=== PATIENT | female | born 1990 | race Caucasian/White ===

== ENCOUNTER 2020-03-08 18:31 | Inpatient (IN) | payer MEDICAID, SELFPAY ==
[2020-03-08] VITALS (24 sets, daily range): BP systolic 0–155; BP diastolic 0–90; PULSE 85–138; RESP 18; TEMP 36.7–37; BMI 27.8
[2020-03-08 18:58] LABS: Basophils # 0.1 10^3/uL (0.0-0.1); Basophils % 0.4 %; Eosinophils % 0.2 %; Hematocrit 34.4 % (37.0-47.0); Hemoglobin 11.4 g/dL (11.5-15.3); Lymphocytes # 1.2 10^3/uL (0.8-4.8); Lymphocytes % 6.7 %; Mean Corpuscular HGB Conc 33.1 g/dL (30.0-36.0); Mean Corpuscular Hemoglobin 31.1 pg (28.0-34.0); Mean Platelet Volume 11.8 fL (7.4-10.4); Monocytes # 1.7 10^3/uL (0.2-0.9); Monocytes % 9.2 %; Neutrophils # 15.01 10^3/uL (1.8-7.7); Neutrophils % 82.7 %; Nucleated Red Blood Cells % 0 %; Platelet Count 291 10^3/cmm (130-400); Red Blood Count 3.66 10^6/uL (4.1-5.3); Red Cell Distribution Width 13.9 % (12.1-15.1); White Blood Count 18.1 10^3/uL (4.0-10.0)
--- NOTE | 2020-03-08 19:33 | PM.DELIVERY ---
Delivery Note: Date of delivery: March 08, 2020 Pre-delivery diagnoses: 29-year-old 4 para 2-0-1-2 female at 39 weeks estimated gestational age who presented to the hospital in active labor. Post-delivery diagnoses: Status post spontaneous vaginal delivery Procedure: Spontaneous vaginal delivery Op report anesthesia: None Delivering Physician: Evan Estrada Estimated blood loss (mL): 100 Pre-Delivery Course: The patient is a 29-year-old female who had an unremarkable who presented to the hospital in active labor. Her blood type was B+. She is GBS negative. Glucose screen was negative. Her was diagnosed with COVID-19 2 days ago. She has been isolating from him since that time. She has had no symptoms. Approximately an hour prior to arriving to the hospital, her water broke. She then began having contractions. She was quickly brought to the hospital. When she arrived, she was 8 cm dilated. She quickly progressed to complete. Delivery: DELIVERY: The patient progressed to complete without difficulty. She delivered a male with a weight of 7 pounds 14 ounces with Apgars of 9, 9. The baby was delivered from the JARETT position. The baby's mouth and nose were suctioned at the site of the perineum. The baby was then completely delivered and placed on the mother's abdomen. The cord was then clamped and cut. There was no nuchal cord. There was no meconium. The placenta and 3 vessel cord were delivered intact shortly thereafter. The perineum and vaginal vault were carefully examined. No lacerations were noted. Both the mother and the baby were in stable condition. Post-Delivery Status: Stable Coding Level of Care Code Acute Health Services Rn for Lora Hopkins
[2020-03-08 19:47] LABS: Slide Review Slide Review Perform
[2020-03-08] MEDS: lanolin oint 7 gm 1 APPLIC TOPICAL (20:51)
[2020-03-08] MEDS: HYDROcodone-acetaminophen 5-325 mg Tablet PO (20:52)
[2020-03-08] MEDS: benzocaine-menthol 78 gm Canister 1 SPRAY TOPICAL (20:52)
[2020-03-09] VITALS (16 sets, daily range): BP systolic 0–137; BP diastolic 0–77; PULSE 72–89; RESP 16–18; TEMP 36.6–36.9; O2SAT 97–99
[2020-03-09 03:48] LABS: SARS Covid-2 Antigen Positive (Negative)
[2020-03-09 08:39] LABS: Hematocrit 32.6 % (37.0-47.0); Hemoglobin 10.8 g/dL (11.5-15.3); Mean Corpuscular HGB Conc 33.1 g/dL (30.0-36.0); Mean Corpuscular Hemoglobin 31.3 pg (28.0-34.0); Mean Corpuscular Volume 94.5 fL (81-99); Mean Platelet Volume 11.7 fL (7.4-10.4); Platelet Count 269 10^3/cmm (130-400); Red Blood Count 3.45 10^6/uL (4.1-5.3); White Blood Count 12.8 10^3/uL (4.0-10.0)
[2020-03-09] MEDS: prenatal vitamin Capsule 1 CAP PO (09:05)
[2020-03-09] MEDS: ibuprofen 800 mg tablet PO ×3 (09:05→20:35)
[2020-03-09] MEDS: docusate sodium 100 mg Capsule PO (09:05)
--- NOTE | 2020-03-09 18:27 | PM.OBGYPN ---
CESSATION SYSTEMS OUTREACH SPECIALIST Subjective Subjective: Interval history: The patient has done very well . She has breast-fed well. Her pain is been well controlled. Her bleeding has been within normal limits. There have been no concerns. She is currently in the OB COVID unit due to her 's COVID positive status. Labor: Station: +2 Amniotic Membrane Status: Ruptured Monitor Mode: External Contraction Pattern: Regular Vitals/I&O/Wt Last Vital Signs Temp 98.1 F 03/09/20 10:15 Pulse 89 03/09/20 10:15 Resp 16 03/09/20 10:15 BP 114/65 03/09/20 10:15 Pulse Ox 99 03/09/20 05:00 03/09/20 03/09/20 03/09/20 06:59 14:59 22:59 Output Total 600 / 600 Balance -600 / -600 Weight last 48 hrs Weight 183 lb Physical Exam Narrative: EXAM NARRATIVE: The patient is alert. She appears comfortable. Her heart has a regular rate and rhythm with no murmurs appreciated. Lungs are clear to auscultation bilaterally. Her fundus is firm and below the umbilicus. Data : 03/09/20 08:15 A&P Assessment and plan (1) 39 weeks gestation of : I anticipate discharge home tomorrow morning if all continues to go well. We will continue to keep her in the COVID unit while in the hospital. Status: Acute (2) Exposure to COVID-19 virus: Status: Acute (3) Spontaneous vaginal delivery: Status: Acute Attestations Medical Necessity Statement*: I anticipate routine care for the patient. Coding Level of Care Code Acute Pattern Gater for Chg Fwd Diagnoses 39 weeks gestation of Z3A.39 Exposure to COVID-19 virus Z20.828 Spontaneous vaginal delivery O80
[2020-03-09] MEDS: HYDROcodone-acetaminophen 5-325 mg Tablet PO (22:04)
[2020-03-09 22:15] LABS: Coronavirus Lab Test PTC Positive
[2020-03-10 04:00] VITALS: BP 128/85; PULSE 77; RESP 18; TEMP 36.5; O2SAT 97
--- NOTE | 2020-03-10 06:37 | P.DS_ITS ---
Discharge Providers DIRECTOR BIOMEDICAL ENGINEERING Date of Admission: 03/08/20 18:31 Date of Discharge: 03/10/20 Attending Provider at Admission: Evan Estrada MD Attending Provider at Discharge: Evan Estrada MD Primary Care Provider: Evan Estrada MD Diagnoses at Discharge Discharge Diagnosis (1) 39 weeks gestation of : Status: Acute (2) Exposure to COVID-19 virus: Status: Acute (3) Spontaneous vaginal delivery: Status: Acute Reason for Visit Reason for Visit: Abdominal pain Hospital Course Hospital Course: The patient presented to the hospital in active labor at 8 cm dilated. She had an unremarkable delivery shortly thereafter. Her course has been complicated only by the fact that she has been exposed to COVID- 19 by her who is positive. As result she is been in the COVID unit during her time in the hospital. She has breast-fed well. Her pain is been well controlled. Her bleeding is been within normal limits. There have been no concerns. Information Peripartum Data: Delivery Method: Vaginal Physical Exam Narrative: EXAM NARRATIVE: The patient is alert. She appears comfortable. Her heart has a regular rate and rhythm with no murmurs appreciated. Lungs are clear to auscultation bilaterally. Her fundus is firm and below the umbilicus. Discharge Data Data Completed and Pending: Labs from last 24 hours 03/09/20 03/09/20 08:15 02:28 WBC 12.8 H RBC 3.45 L Hgb 10.8 L Hct 32.6 L MCV 94.5 MCH 31.3 MCHC 33.1 RDW 14.0 Plt Count 269 MPV 11.7 H Nasal/Oral COVID-1 9 PCR Positive Vitals: Last Vital Signs Temp 97.7 F 03/10/20 04:00 Pulse 77 03/10/20 04:00 Resp 18 03/10/20 04:00 BP 128/85 03/10/20 04:00 Pulse Ox 97 03/10/20 04:00 Discharge Plan Discharge Patient Disposition: Home Condition: Stable Prescriptions: New ibuprofen 800 mg Tablet 800 mg PO TID Qty: 30 RF: 0 Continued 28 mg iron- 800 mcg Tablet 1 tab PO DAILY RF: 0 Discharge Orders: Discharge Order (Routine); Ordered 03/10/20 Ordered By: Evan Estrada Referrals: Evan Estrada MD [Primary Care Provider] - 6 Weeks Discharge Diet: Usual diet Discharge Activity: Limit activity as instructed Discharge Attestations DIRECTOR BIOMEDICAL ENGINEERING Time Spent in Discharge Care*: less than 30 min Coding Level of Care Code Acute Equipment Maintenance Superintendent for Chg Fwd Diagnoses 39 weeks gestation of Z3A.39 Exposure to COVID-19 virus Z20.828 Spontaneous vaginal delivery O80
[2020-03-10 07:58] VITALS: BP 122/80; PULSE 80; RESP 18; TEMP 36.4; O2SAT 97
[2020-03-10] MEDS: benzocaine-menthol 78 gm Canister 1 SPRAY TOPICAL (08:07)
== END 2020-03-10 08:45 | disposition home or self-care (01) | DRG 807 ==
LOC: OPOB 18:32 → OBGYN 18:33 → OPOB 19:23 → OBGYN 19:23
PROVIDERS: Admitting Provider Family Medicine; Family Provider Family Medicine; PCP Family Medicine; Visit Provider Family Medicine
DX: O42.02 Full-term premature rupture of membranes, onset of labor within 24 hours of rupture (principal); Z37.0 Single live birth; Z3A.39 39 weeks gestation of pregnancy; Z20.828 Contact with and (suspected) exposure to other viral communicable diseases; O62.3 Precipitate labor
CPT/HCPCS: 12345; 36415; 59025; 59409; 85025; 85027; 87426; 87635; 99211

== ENCOUNTER → 2021-06-18 15:10 | Outpatient (BNVA) | payer MEDICAID, SELFPAY | PROVIDERS: PCP Family Medicine; Visit Provider Family Medicine | DX: M25.572 Pain in left ankle and joints of left foot (principal) | CPT/HCPCS: 73610 ==

== ENCOUNTER 2021-06-21 14:06 | Outpatient (CLI) | payer MEDICAID, SELFPAY | END 2021-06-21 14:07 | disposition home or self-care (01) | LOC: SPT 14:43 | PROVIDERS: PCP Family Medicine; Visit Provider Podiatrist Foot & Ankle Surgery | DX: Z46.89 Encounter for fitting and adjustment of other specified devices (principal); S82.392D Other fracture of lower end of left tibia, subsequent encounter for closed fracture with routine healing; X58.XXXD Exposure to other specified factors, subsequent encounter | CPT/HCPCS: 97760; L4361 ==

== ENCOUNTER 2021-07-11 08:27 | Outpatient (CLI) | payer MEDICAID, SELFPAY ==
--- NOTE | 2021-07-11 08:30 | CT_ITS ---
WS: [id number] NONCONTRAST CT LEFT ANKLE TECHNIQUE: Noncontrast CT LEFT ankle with coronal and sagittal reformatted images. CLINICAL INFORMATION: Left ankle fracture COMPARISON: June 18, 2021 DLP: 126.[address] scans at [facility] use at least one of these dose optimization techniques: automated e xposure control; mA and/or kV adjustment per patient size (includes targeted exams where dose is matc hed to clinical indication); or iterative reconstruction. FINDINGS: Again seen is the tiny hairline fracture involving the posterior malleolus extending to the posterior tibiotalar articular surface. No displacement. Small amount of sclerosis along the fracture line com patible with some healing. Persistent visualized fracture line. Recommend continued surveillance to a ssess for healing. Normal ankle mortise. Normal medial and lateral malleolus. Normal talar dome. Normal calcaneus. Base of the 5th metatarsal is normal. Normal cuboid. Normal cuneiforms. Normal navicular.. CT/CT ankle LT wo con* [id number] IMPRESSION: 1. Again seen is the tiny hairline fracture involving the posterior malleolus with a small amount of sclerosis compatible with some interval healing although incomplete. Fracture extends to the tibiotalar articular surface. 2. No displacement. Recommend continued follow-up to assess for healing. 3. No other significant findings.
== END 2021-07-11 08:28 | disposition home or self-care (01) ==
LOC: RAD 08:33
PROVIDERS: PCP Family Medicine; Visit Provider Podiatrist Foot & Ankle Surgery
DX: S82.392A Other fracture of lower end of left tibia, initial encounter for closed fracture (principal); S82.892A Other fracture of left lower leg, initial encounter for closed fracture; X58.XXXA Exposure to other specified factors, initial encounter
CPT/HCPCS: 73700

== ENCOUNTER → 2021-07-27 14:16 | Outpatient (BNVA) | payer MEDICAID, SELFPAY | PROVIDERS: PCP Family Medicine; Visit Provider Podiatrist Foot & Ankle Surgery | DX: M25.572 Pain in left ankle and joints of left foot (principal); S82.292A Other fracture of shaft of left tibia, initial encounter for closed fracture; X58.XXXA Exposure to other specified factors, initial encounter | CPT/HCPCS: 73610 ==

== ENCOUNTER 2021-07-27 14:56 | Outpatient (CLI) | payer MEDICAID, SELFPAY | END 2021-07-27 14:57 | disposition home or self-care (01) | LOC: SPT 14:57 | PROVIDERS: PCP Family Medicine; Visit Provider Podiatrist Foot & Ankle Surgery | DX: Z46.89 Encounter for fitting and adjustment of other specified devices (principal); S82.39 Other fracture of lower end of tibia; X58.XXXS Exposure to other specified factors, sequela | CPT/HCPCS: 97760; L1902 ==

== ENCOUNTER → 2021-08-23 14:13 | Outpatient (BNVA) | payer MEDICAID, SELFPAY | PROVIDERS: PCP Family Medicine; Visit Provider Podiatrist Foot & Ankle Surgery | DX: S82.399A Other fracture of lower end of unspecified tibia, initial encounter for closed fracture (principal); X58.XXXA Exposure to other specified factors, initial encounter | CPT/HCPCS: 73610 ==

== ENCOUNTER → 2022-05-09 14:13 | Outpatient (BNVA) | payer MEDICAID, SELFPAY | PROVIDERS: PCP Family Medicine; Visit Provider Nurse Practitioner Family | DX: R50.9 Fever, unspecified (principal); A08.4 Viral intestinal infection, unspecified | CPT/HCPCS: 87400 ==

== ENCOUNTER → 2022-07-19 17:23 | Outpatient (BNVA) | payer MEDICAID, SELFPAY | PROVIDERS: PCP Family Medicine; Visit Provider Registered Nurse Neonatal Intensive Care | DX: R30.0 Dysuria (principal) | CPT/HCPCS: 81000 ==

== ENCOUNTER 2022-08-30 14:35 | Outpatient (CLI) | payer MEDICAID, SELFPAY ==
--- NOTE | 2022-08-30 14:45 | US_ITS ---
WS: [id number] Complete ABDOMINAL ULTRASOUND HISTORY: LLQ ABD PAIN COMPARISON: None available. Liver: 16.7 cm in length. Normal size liver and echogenicity. No bile duct dilatation or mass. Portal Vein: Normal hepatopetal flow with monophasic waveform. Gallbladder: Normally distended gallbladder with stones. No pericholecystic fluid. Gallbladder is mil dly hydropic. CBD: 0.2 cm Pancreas: Normal size and echogenicity. Right kidney: 11.7 cm x 3.9 x 4.6 cm. Cortex:1.1 cm. Normal size and echogenicity. No hydronephrosis or mass. Left kidney: 11.2 cm x 4.2 cm x 4.8 cm. Cortex: 1.1 cm. No mass, cortical thickening or hydronephrosis. Spleen: Normal size and echogenicity. Aorta and IVC: Unremarkable abdominal aorta and IVC. US/US abdomen complete* [id number] Impression: 1. Cholelithiasis with a negative Virk's sign. 2. Mildly hydropic gallbladder. Recommend follow-up with surgery to consider c holecystectomy. 3. No bile duct dilatation.
--- NOTE | 2022-08-30 15:15 | US_ITS ---
WS: [id number] US pelv w/transvag [id number] HISTORY: R10.32 - Left lower quadrant pain COMPARISON: None available. Uterus: 6.8 cm x 4.3 cm x 3.2 cm. Normal size anteverted uterus. No fibroid or mass. Endometrium: 0.3 cm. Normal homogeneous endometrium. Right ovary: 2.1 cm x 1.1 cm x 2.4 cm. Normal size and vascularity, no cystic or solid masses. Left ovary: 2.6 cm x 1.2 cm x 2.1 cm. Normal size and vascularity, no cystic or solid masses. No free fluid. US/US pelv w/transvag [id number] IMPRESSION: Normal transvaginal and transabdominal pelvic ultrasound.
== END 2022-08-30 14:36 | disposition home or self-care (01) ==
LOC: RAD 14:37
PROVIDERS: PCP Family Medicine; Visit Provider Family Medicine
DX: R10.32 Left lower quadrant pain (principal); K80.20 Calculus of gallbladder without cholecystitis without obstruction
CPT/HCPCS: 76700; 76830; 76856; 81003

== ENCOUNTER → 2023-05-15 17:07 | Outpatient (BNVA) | payer MEDICAID, SELFPAY | PROVIDERS: PCP Family Medicine; Visit Provider Family Medicine | DX: J02.9 Acute pharyngitis, unspecified (principal); H66.003 Acute suppurative otitis media without spontaneous rupture of ear drum, bilateral | CPT/HCPCS: 87071; 87880 ==

== ENCOUNTER → 2024-02-17 16:08 | Outpatient (BNVA) | payer MEDICAID, SELFPAY | PROVIDERS: PCP Family Medicine; Visit Provider Family Medicine | DX: J02.9 Acute pharyngitis, unspecified (principal) | CPT/HCPCS: 87071; 87880 ==